=== PATIENT | female | born 1985 | race Caucasian/White ===

== ENCOUNTER 2017-04-04 00:59 | Inpatient (IN) | payer OTHER ==
[~2017-04-04] VITALS: Ht 165.1 cm; Wt 95.7 kg
[2017-04-04] MEDS ORDERED: diphenhydrAMINE 50 mg Capsule PO PRN (19:05)
[2017-04-04] MEDS ORDERED: Lactated Ringer's 1,000 ML IV PRN (19:07)
[2017-04-04] MEDS ORDERED: fentaNYL-PF 50 mCg/mL 2 mL Inj IVPUSH PRN (19:10)
[2017-04-04] MEDS ORDERED: Ondansetron 2 mg/mL 2 mL Inj IVPUSH PRN (19:10)
[2017-04-04] MEDS ORDERED: Methylergonovine 0.2 mg/mL Inj IM PRN (19:10)
[2017-04-04] MEDS ORDERED: Oxytocin 30 Units/500 mL LR 30 UNITS in IV Premix 1 EACH IV PRN (19:10)
[2017-04-04] MEDS ORDERED: Sodium Chloride LOK Flush 10 mL Syringe IVFLUSH PRN (19:10)
[2017-04-04] MEDS ORDERED: Carboprost 250 mCg/mL Inj IM PRN (19:10)
[2017-04-04] MEDS ORDERED: Oxytocin 10 Unit/mL Inj IM PRN (19:10)
[2017-04-04] MEDS ORDERED: Hemorrhage Kit, Post Partum XX ONE (19:10)
[2017-04-04] MEDS ORDERED: Glucose 40% Oral Gel 15 Gm Tube PO PRN (19:15)
[2017-04-04 21:20] LABS: Mean Corpuscular Hemoglobin 28.8 pg (27.0-35.0); Mean Corpuscular Volume 83.4 fL (81-100)
[2017-04-04] MEDS ORDERED: Insulin LISPRO 300 Unit/3 mL Inj SUBQ SCH (22:00)
[2017-04-05] MEDS ORDERED: Promethazine Inj 25 MG in 0.9% Sodium Chloride 50 ML IV PRN (00:55)
[2017-04-05] MEDS ORDERED: Promethazine Inj 12.5 MG in 0.9% Sodium Chloride 50 ML IV PRN (00:55)
--- NOTE | 2017-04-05 09:28 | HP ---
[address] [address] HISTORY AND PHYSICAL PATIENT: EVANGELISTA WHITFIELD : 1985 MR#: [id number] ADMIT: 04/04/2017 JOB ID: [id number] CHIEF COMPLAINT: Presents for induction; indication, gestational diabetes. HISTORY OF PRESENT ILLNESS: A 31-year-old, 2, para 0, SAB 1, with an EDC of April 12, 2017, based on an LMP of July 06, 2016, and a concordant 21-week two-day ultrasound done November 28, 2016. Presents for induction. Indication is gestational diabetes controlled with oral medication. The patient was diagnosed at 29 weeks gestation with gestational diabetes. After not succeeding to achieve diabetic control with diet alone, she was started on metformin. Eventually worked up to q.i.d. dosing, and Glyburide added at 5 mg in the evening. She has had reasonable control since that time. Based on current literature recommendations for induction at 39+ weeks, she was admitted last night. Cervix was closed and high. Cervidil was placed. About an hour later, she developed nausea and vomiting, which persisted for several hours, and then developed a fever. There was associated tachycardia as well. Cervidil was pulled. The patient received IV fluids, and this morning reports feeling significantly better. She has occasional mild uterine irritability but no regular contractions. Her cervix is still not reachable on exam done by myself this morning. Her A1c returned at 5.2. LABORATORIES: Blood type O positive. GBS positive, screened March 09. She is rubella immune. Hepatitis B surface antigen, HIV negative. Hematocrit at 29 weeks was 36.1. Antibody screen was negative at the onset of . Her A1c on March 03 of this year was 5.6. Pap was normal. She declined risk testing. A 29-week glucose tolerance test showed a fasting of 94, a 1 hour of 193, a 2 hour of 155. PAST GYNECOLOGIC HISTORY: 2, para 0, SAB 1 in 2011, first trimester. ISSUES: 1. Excess weight. 2. History of fainting in medical settings/blood draws with post event seizure, but does not have a primary seizure disorder. 3. Gestational diabetes. Controlled with oral medication. 4. GBS positive. ALLERGIES: None known. CURRENT MEDICATIONS: 1. Metformin 500 mg q.i.d. 2. Glyburide 5 mg q.h.s. and recently increased to 2.5 in the morning. 3. vitamins 1 tablet daily. SOCIAL HISTORY: She is a nonsmoker. Did not drink alcohol during . Previously denied recreational drug use. Is , and accompanied by her . She works as a dispatcher for [employer]. PHYSICAL EXAMINATION: Current temperature 36.9 Celsius, blood pressure 112/65, pulse 66, T-max overnight 37.9. She is a tired appearing, gravid woman not in significant distress. I can reach the anterior portion of her cervix but cannot get to the os. head does feel engaged with the pelvis and not ballotable. heart tracing at present shows a baseline in the 130s to 140s, with numerous accelerations and no decelerations. Review of the tracing overnight shows tachycardia to the 160s during the patient's febrile. There are decelerations that are were persistent or recurrent and appeared to have resolved. Tocometer is not picking up particularly well but does show occasional uterine irritability/contraction. The patient does not feel these strongly. ASSESSMENT: 1. Gravid at 39 weeks gestation. 2. Gestational diabetes. Controlled with oral agents. Her A1c returns at 5.2. 3. Group B streptococcus positive. 4. Fever, nausea, vomiting and tachycardia after placement of Cervidil, now improved. PLAN: In the office we have discussed the indications for induction at 39 weeks gestation based on her history of gestational diabetes. Current expert groups recommend induction at 39-40 weeks. Patient is not wishing to repeat last night's miserable events with persistent nausea and strongly prefers to go home. We reviewed the abnormal tracing during these episodes. Reviewed risks of discharge, and in the office we reviewed the higher risk of stillbirth in patients with gestational diabetes who continue past 39 weeks. After discussion with the patient and her , they still would like to discharge home. They are willing to stay for a biophysical profile on some additional monitoring to see if continued reassuring tracing. If she does discharge home, I would ask for a nonstress test tomorrow and then, perhaps, Sunday as well. Arrangements are being made for a retry of induction early next week probably with a Rahman balloon and/or oxytocin. Reviewed options and risks and the benefits of these approaches. I would avoid misoprostol at this point, given her significant side effects with Cervidil which is chemically related. I asked patient to do kick counts at home and to report any decreased movement immediately, with a return to the Center for further evaluation. If current monitoring is not reassuring, would discuss having her stay inpatient and consult with Obstetrics for additional options. She does not wish a unless there are no other immediate options.
--- NOTE | 2017-04-05 15:16 | DRSVH ---
PROCEDURE: US OB FOLLOW UP GROWTH AND BIOPHYSICAL PROFILE AND UMBILICAL DOPPPLER INDICATIONS: DIABETIC,SIZE OUTSIDE/PRIOR DATING DATA: Last menstrual period (LMP): 07/06/2016. LMP-based estimated date of delivery (SHANTEL): 04/12/2017. First dating scan (date and location): 10/02/2016 at [facility]. Estimated date of delivery (SHANTEL) from first dating scan: 04/09/2017. TECHNIQUE: Real-time scanning was performed of the fetus, with image documentation and biometric loki surements. Biophysical profile was also obtained. COMPARISON: [facility], US, US OB FOLLOW UP GROWTH, 03/14/2017, 12:31. FINDINGS: General: A single living intrauterine gestation is present. Presentation: Vertex Placenta: Placental position is posterior, without previa. [employer] OPERATIONS [employer]IST Ultrasound Procedure Report Summary Fetus Summary Estimated Gestational Age by first dating scan: 39 weeks, 0 days Composite Gestational Age by present scan: 38 weeks, 6 days Estimated Weight (EFW): 3478 g EFW percentile rank: 54 % Heart Rate: 144 bpm Findings(Amniotic Sac) Amniotic Fluid Index: 10.80 cm Pelvis and Uterus Cervix Length (Mean): Not well seen. Biometry BiometryGroup Biparietal Diameter (Mean): 9.84 cm Gestational Age (BPD): 40 weeks, 2 days Head Circumference (Mean): 34.84 cm Gestational Age (HC): 40 weeks, 3 days Abdominal Circumference (Mean): 34.31 cm Gestational Age (AC): 38 weeks, 1 day Femur Length (Mean): 7.17 cm Gestational Age (FL): 36 weeks, 5 days Biophysical Profile Tone: 2 Gross Body Movement: 2 Breathin Amniotic Fluid Volume: 2 Biophysical Profile Sum Score: 6 Findings(Pelvic Vascular Structure) Umbilical Artery S/D Ratio: 1.77, 1.86, 1.30 IMPRESSION: Single living intrauterine gestation redemonstrated with estimated weight at the 54 th percentile. Of note, BPD is roughly at the 97th percentile. Dictated by: Brian LITTLE Interpreted: Ann Ayers MD on 04/05/2017 at 10:58 Approved by: Ann Ayers M.D. on 04/05/2017 at 15:14
== END 2017-04-05 11:08 | disposition home or self-care (01) | DRG 781 ==
LOC: FBC 19:05
PROVIDERS: ADMIT Family Medicine; ATTEND Family Medicine
PROC: 3E0P7GC Introduction of Other Therapeutic Substance into Female Reproductive, Via Natural or Artificial Opening (ICD-10-PCS; principal; 2017-04-05)
DX: O61.0 Failed medical induction of labor (principal); O24.415 Gestational diabetes mellitus in pregnancy, controlled by oral hypoglycemic drugs; Z79.84 Long term (current) use of oral hypoglycemic drugs; R11.2 Nausea with vomiting, unspecified; O26.03 Excessive weight gain in pregnancy, third trimester; O99.820 Streptococcus B carrier state complicating pregnancy; Z3A.39 39 weeks gestation of pregnancy